=== PATIENT | female | born 2000 | race African-American/Black ===

== ENCOUNTER 2021-10-02 15:06 | Observation (INO) | payer OTHER ==
[2021-10-02] MEDS ORDERED: hydrALAZINE 20 MG/ML VIAL SLOW IVP PRN ×2 (16:18→19:26)
[2021-10-02 17:10] LABS: #Monocytes 0.5 10x3/uL (0.0-1.1); #Neutrophils 4.1 10x3/uL (1.5-8.4); %Basophils 0.3 % (0.0-2.0); %Eosinophils 0.6 % (0.0-6.0); %Lymphocytes 27.7 % (18.0-47.0); %Monocytes 7.3 % (0.0-10.0); %Neutrophils 63.5 % (40.0-75.0); Mean Corpuscular HGB CONC 34.2 g/dL (32.0-36.0); Mean Corpuscular Hemoglobin 26.4 pg (27.0-33.0); Mean Corpuscular Volume 77.1 fl (81.6-98.3); Mean Platelet Volume 12.9 fl (7.4-10.4); Platelet Count 240 10x3/uL (150-450); RBC Distribution Width 15.7 % (11.5-14.5); Red Blood Cell (RBC) Count 3.41 10x6/uL (3.90-5.03); White Blood Cell (WBC) Count 6.4 10x3/uL (3.5-10.5)
[2021-10-02 17:34] LABS: ALT (SGPT) 9 U/L (8-55); AST (SGOT) 16 U/L (5-34); Albumin 3.4 g/dL (3.5-5.0); Alkaline Phosphatase 156 U/L (40-110); Anion Gap 15 mmol/L (10-20); BUN (Urea Nitrogen) 5 mg/dL (7.0-18.7); Bilirubin, Total 0.3 mg/dL (0.2-1.2); Calc. Creatinine Clearance 0 mL/min (70-130); Calcium 8.8 mg/dL (7.8-10.44); Carbon Dioxide 20 mmol/L (22-29); Chloride 105 mmol/L (98-107); Estimated GFR 131; Globulin 3.4 g/dL (2.4-3.5); Glucose 65 mg/dL (70-105); Protein, Total 6.8 g/dL (6.0-8.3); Sodium 137 mmol/L (136-145); Uric Acid 4.5 mg/dL (2.6-6.0)
[2021-10-02 17:49] LABS: Potassium 2.9 mmol/L (3.5-5.1)
[2021-10-02 18:22] VITALS: BMI 32.8
[2021-10-02] MEDS ORDERED: Promethazine HCl 25 MG/ML VIAL IM PRN (18:41)
[2021-10-02] MEDS ORDERED: Ondansetron PF 4 MG/2 ML Vial IVP SCH (18:45)
[2021-10-02 18:52] LABS: Magnesium 1.8 mg/dL (1.6-2.6)
[2021-10-02] MEDS ORDERED: Ondansetron PF 4 MG/2 ML Vial IVP PRN (19:26)
[2021-10-02] MEDS ORDERED: Potassium Chloride 20 MEQ TAB PO SCH (20:00)
[2021-10-02] MEDS ORDERED: Potassium Chloride 40 MEQ, Admixture Fee 1 EACH in Sodium Chloride 0.45% 1,000 ML IV SCH (20:00)
[2021-10-02 21:01] LABS: SARS-CoV-2 NAA Rapid Test Not Detected (NotDetected)
[2021-10-03] MEDS ORDERED: Magnesium 2 GM/50 ML(in water) 2 GM in Premix Bag 1 BAG IVPB SCH (06:30)
[2021-10-03] MEDS ORDERED: Potassium Chloride 20 MEQ TAB PO SCH (08:00)
[2021-10-03 11:15] VITALS: BP 126/75; TEMP 98.5
== END 2021-10-03 13:20 | disposition home or self-care (01) ==
LOC: CSHLD/OP 15:06 → CSHLD 20:33 → INTOOBSV 20:33 → CSHANTE 21:18
PROVIDERS: ADMIT Obstetrics & Gynecology; ATTEND Obstetrics & Gynecology
DX: O13.3 Gestational [pregnancy-induced] hypertension without significant proteinuria, third trimester (principal); O99.283 Endocrine, nutritional and metabolic diseases complicating pregnancy, third trimester; E87.6 Hypokalemia; O26.873 Cervical shortening, third trimester; Z3A.36 36 weeks gestation of pregnancy
CPT/HCPCS: 36415; 76815; 76819; 80053; 82570; 83735; 84156; 84550; 85025; 96374; 96375; 99285; G0378; J2405; J3475; J3480; U0002

== ENCOUNTER 2021-10-08 05:39 | Inpatient (IN) | payer OTHER ==
[2021-10-08] MEDS ORDERED: Ibuprofen 800 MG TAB PO PRN (06:47)
[2021-10-08] MEDS ORDERED: Carboprost 250 MCG/ML AMP IM PRN (06:47)
[2021-10-08] MEDS ORDERED: Ondansetron PF 4 MG/2 ML Vial IVP PRN (06:47)
[2021-10-08] MEDS ORDERED: Misoprostol 200 MCG TAB PR PRN (06:47)
[2021-10-08] MEDS ORDERED: Butorphanol Tartrate 1 MG/ML VIAL SLOW IVP PRN (06:47)
[2021-10-08] MEDS ORDERED: Diphenoxylate HCl/Atropine Tablet PO PRN (06:47)
[2021-10-08] MEDS ORDERED: hydrALAZINE 20 MG/ML VIAL SLOW IVP PRN ×2 (06:47→14:05)
[2021-10-08] MEDS ORDERED: Acetaminophen 500 MG TAB PO PRN (06:47)
[2021-10-08] MEDS ORDERED: Promethazine HCl 25 MG/ML VIAL IM PRN (06:47)
[2021-10-08] MEDS ORDERED: HYDROcodone/Acetaminophen 5/325 mg Tablet PO PRN (06:47)
[2021-10-08] MEDS ORDERED: Lactated Ringer's 1,000 ML IV SCH (06:47)
[2021-10-08] MEDS ORDERED: Lidocaine 1% (PF) 30 ML VIAL SC PRN (06:47)
[2021-10-08] MEDS ORDERED: NS w/ Oxytocin 30 units 500 ML IV SCH (06:47)
[2021-10-08 06:50] VITALS: BMI 32.1
[2021-10-08 07:28] LABS: Hemoglobin 9.5 g/dL (12.0-15.5); Mean Corpuscular HGB CONC 35.3 g/dL (32.0-36.0); Mean Corpuscular Hemoglobin 26.8 pg (27.0-33.0); Mean Platelet Volume 12.5 fl (7.4-10.4); Platelet Count 224 10x3/uL (150-450); Red Blood Cell (RBC) Count 3.54 10x6/uL (3.90-5.03); White Blood Cell (WBC) Count 5.2 10x3/uL (3.5-10.5)
[2021-10-08 07:43] LABS: ALT (SGPT) Less than 6 U/L (8-55); AST (SGOT) 13 U/L (5-34); Albumin 3.2 g/dL (3.5-5.0); Alkaline Phosphatase 159 U/L (40-110); Anion Gap 15 mmol/L (10-20); BUN (Urea Nitrogen) 5 mg/dL (7.0-18.7); Bilirubin, Total 0.5 mg/dL (0.2-1.2); Calc. Creatinine Clearance 184 mL/min (70-130); Calcium 8.6 mg/dL (7.8-10.44); Carbon Dioxide 20 mmol/L (22-29); Chloride 107 mmol/L (98-107); Estimated GFR 131; Globulin 2.9 g/dL (2.4-3.5); Glucose 69 mg/dL (70-105); Potassium 3.4 mmol/L (3.5-5.1); Protein, Total 6.1 g/dL (6.0-8.3); Sodium 139 mmol/L (136-145)
[2021-10-08 07:52] LABS: Hep B Surf Ag Non-Reactive S/CO (NonReactive)
[2021-10-08 07:54] LABS: Syphilis Antibody Nonreactive (Nonreactive); Syphilis Antibody Index 0.04 S/CO (<1.00 Non-Reactive)
[2021-10-08 07:57] LABS: HBSAg Index 0.13 S/CO (0-0.99)
[2021-10-08 09:59] LABS: SARS-CoV-2 NAA Rapid Test Not Detected (NotDetected)
[2021-10-08] MEDS ORDERED: Potassium Chloride 20 MEQ TAB PO SCH (10:00)
[2021-10-08] MEDS ORDERED: Fentanyl 2 mcg/Bup 0.1% Cadd 100 ML ONE (12:55)
[2021-10-08] MEDS ORDERED: Magnesium Sulfate 20 gm/500 ml 20 GM/500 ML BAG ONE (12:56)
[2021-10-08] MEDS: NS w/ Oxytocin 30 units 500 ML IV SCH ×2 (13:15→20:34)
[2021-10-08] MEDS ORDERED: Lorazepam 2 MG/ML VIAL SLOW IVP PRN (14:05)
[2021-10-08] MEDS ORDERED: Calcium Gluc 4.6 MEQ/10 ML (100 MG/ML) SLOW IVP PRN (14:05)
[2021-10-08] MEDS ORDERED: Labetalol HCl 100 MG/20 ML VIAL SLOW IVP PRN ×3 (14:05)
[2021-10-08] MEDS ORDERED: Magnesium Sulfate 20 gm/500 ml 20 GM/500 ML BAG IVPB SCH (14:15)
[2021-10-08 20:46] LABS: pH (Cord, venous) 7.275 (7.250-7.350)
[2021-10-09] MEDS ORDERED: Promethazine HCl 25 MG/ML VIAL IM PRN (22:03)
[2021-10-09] MEDS ORDERED: Ondansetron PF 4 MG/2 ML Vial IVP PRN (22:03)
[2021-10-09] MEDS ORDERED: hydrALAZINE 20 MG/ML VIAL SLOW IVP PRN (22:03)
[2021-10-09] MEDS ORDERED: Preparation H Ointment 28 GM TUBE PR PRN (22:03)
[2021-10-09] MEDS ORDERED: Boostrix 0.5 ML (Tdap) VIAL IM ONE (22:03)
[2021-10-09] MEDS ORDERED: Lanolin Ointment 7 GM TUBE TOP PRN (22:03)
[2021-10-09] MEDS ORDERED: Benzocaine-Menthol 82.5 ML CAN TOP PRN (22:03)
[2021-10-09] MEDS ORDERED: Milk Of Magnesia 30 ML UDCUP PO PRN (22:03)
[2021-10-09] MEDS ORDERED: Bisacodyl 10 MG SUPP PR PRN (22:03)
[2021-10-09] MEDS ORDERED: HYDROcodone/Acetaminophen 5/325 mg Tablet PO PRN ×2 (22:03)
[2021-10-09] MEDS ORDERED: diphenhydrAMINE 25 MG CAP PO PRN (22:03)
[2021-10-09] MEDS: Ibuprofen 800 MG TAB PO SCH (23:53)
[2021-10-10] MEDS: Ibuprofen 800 MG TAB PO SCH ×2 (08:49→14:38)
[2021-10-10] MEDS: Docusate 100 MG CAP PO SCH ×2 (08:49→09:23)
[2021-10-10] MEDS: Ferrous Sulfate 325 MG TAB PO SCH ×3 (08:50→16:43)
[2021-10-10] MEDS ORDERED: Prenatal Vitamin 1 TAB PO SCH (09:00)
[2021-10-10 16:48] VITALS: BP 143/93; TEMP 98.1
[2021-10-10] MEDS ORDERED: Labetalol HCl 200 MG TAB PO SCH ×2 (17:30→21:00)
== END 2021-10-10 18:35 | disposition home or self-care (01) | DRG 807 ==
LOC: CSHLD 05:39 → CSHPP 10-10 09:15
PROVIDERS: ADMIT Student in an Organized Health Care Education/Training Program; ATTEND Student in an Organized Health Care Education/Training Program
PROC: 10D07Z6 Extraction of Products of Conception, Vacuum, Via Natural or Artificial Opening (ICD-10-PCS; principal; 2021-10-09)
PROC: 0HQ9XZZ Repair Perineum Skin, External Approach (ICD-10-PCS; 2021-10-09)
DX: O14.14 Severe pre-eclampsia complicating childbirth (principal); Z37.0 Single live birth; O76 Abnormality in fetal heart rate and rhythm complicating labor and delivery; Z3A.37 37 weeks gestation of pregnancy; O70.0 First degree perineal laceration during delivery; O32.8XX0 Maternal care for other malpresentation of fetus, not applicable or unspecified; O71.82 Other specified trauma to perineum and vulva; Z20.822 Contact with and (suspected) exposure to COVID-19; O90.81 Anemia of the puerperium; D64.9 Anemia, unspecified
CPT/HCPCS: 36415; 80053; 82805; 85027; 86780; 86850; 86900; 86901; 87340; J0360; J0595; J2405; J2590; J3475; U0002